=== PATIENT | male | born 1950 | race Caucasian/White ===

== ENCOUNTER 2016-06-28 13:54 | Emergency (ER) | payer MEDICARE ==
[2016-06-28] MEDS ORDERED: DIPH,PERTUS(ACELL)TETVAC-LF 0.5 ML VIAL IM ONE (14:39)
--- NOTE | 2016-06-28 14:46 | ED ---
Fall HPI - General Chief Complaint: Fall Stated Complaint: Fall, 15ft ladder Time Seen by Provider: 06/28/16 14:08 Source: patient, EMS Mode of arrival: EMS - History of Present Illness Initial Comments: This patient is a 65-year-old man who states that he was working on a ladder at his [employer] proximally 15 feet up when the ladder fell over and he fell as well. The patient states that he landed mainly with his left side. Complains of left forearm/wrist pain, some nose and facial pain, left chest wall and left ankle pain. The patient did not have loss of consciousness. He denies significant headache. He has not had change in vision or sensation. The patient states that he did lie on the ground for a period then got up and was able to bear weight. MD Complaint: fall -: hour(s) Fall From: other (On a ladder) When Fall Occurred: 1 hour [employer] Fall Witnessed: yes, by family Place Fall Occurred: other (At [employer]) Loss of Consciousness: none Prolonged Down Time?: no Symptoms Prior to Fall: none Location: face, chest Location - Extremities: Left: Forearm, Ankle Severity: moderate Quality: other Context: other (Latter fell) - Related Data Home Medications Medication Instructions Recorded Confirmed Metoprolol Succinate [Toprol XL] 50 mg PO BID 05/02/14 06/28/16 Glucosamine Sulfate 500 mg PO DAILY 06/28/16 06/28/16 Krill/Om-3/Dha/Epa/Phospho/Ast 1 cap PO DAILY 06/28/16 06/28/16 [[place]-3 Krill Oil 300 mg Sfgl] Multivitamin [Men's Multi-Vitamin] 1 tab PO DAILY 06/28/16 06/28/16 Previous Rx's Medication Instructions Recorded Hydrocodone/Acetaminophen [[place] 1 each PO Q6HR PRN #20 tab 06/28/16 5-325] Allergies Allergy/AdvReac Type Severity Reaction Status Date / Time amoxicillin Allergy Rash/Hives Verified 06/28/16 14:51 naproxen [From Naprosyn] Allergy ELEVATED Verified 06/28/16 14:51 BLOOD PRESSURE clarithromycin [From Biaxin] AdvReac Severe Abdominal Verified 06/28/16 14:51 Pain DETERGENT SENSITIVITY AdvReac Rash/Hives, Uncoded 06/28/16 14:09 ITCHING Review of Systems ROS Statement: Those systems with pertinent positive or pertinent negative responses have been documented in the HPI. ROS Other: All systems not noted in ROS Statement are negative. Constitutional: Denies: weakness Eyes: Denies: eye pain, vision change ENT: Reports: epistaxis, other (Upper lip laceration.) Respiratory: Denies: cough, dyspnea, hemoptysis Cardiovascular: Reports: chest pain. Denies: dyspnea on exertion, syncope Gastrointestinal: Denies: abdominal pain, nausea, vomiting Genitourinary: Denies: urgency, testicular pain Musculoskeletal: Reports: as per HPI, joint swelling, arthralgia. Denies: back pain Skin: Denies: rash Neurological: Denies: headache, weakness, numbness, paresthesias, confusion Past Medical History Past Medical History: Hypertension, Prostate Disorder, Skin Disorder Additional Past Medical History / Comment(s): BPH. SENSITIVE SKIN. History of Any Multi-Drug Resistant Organisms: None Reported Past Surgical History: Tonsillectomy Additional Past Surgical History / Comment(s): VASECTOMY Past Anesthesia/Blood Transfusion Reactions: No Reported Reaction Past Psychological History: No Psychological Hx Reported Smoking Status: Never smoker Past Alcohol Use History: None Reported Past Drug Use History: None Reported General Exam Limitations: no limitations General appearance: alert, in no apparent distress, other (This patient is a middle-aged white man who is alert and in no distress. He is joking with the examiner throughout the exam.) Head exam: Present: atraumatic, normocephalic Eye exam: Present: PERRL, EOMI, other (There is some swelling to the upper lip as well as a laceration. There is nasal swelling and dried blood to the bilateral nares. tenderness to the bridge of the nose). Absent: scleral icterus , conjunctival injection, periorbital swelling, periorbital tenderness Neck exam: Present: normal inspection, full ROM. Absent: tenderness, meningismus Respiratory exam: Present: normal lung sounds bilaterally, chest wall tenderness. Absent: respiratory distress, wheezes, rales, rhonchi, stridor, accessory muscle use, decreased breath sounds, prolonged expiratory Cardiovascular Exam: Present: regular rate, normal rhythm, normal heart sounds. Absent: systolic murmur, diastolic murmur, rubs, gallop GI/Abdominal exam: Present: soft. Absent: distended, tenderness, guarding, rebound, mass Extremities exam: Present: tenderness, normal capillary refill, other (Swelling and tenderness at the lateral aspect of the left ankle. Swelling and tenderness to the left wrist.). Absent: pedal edema Back exam: Present: normal inspection. Absent: CVA tenderness (R), CVA tenderness (L), paraspinal tenderness, vertebral tenderness Neurological exam: Present: alert, oriented X3, CN II-XII intact. Absent: motor sensory deficit Skin exam: Present: warm, dry, normal color Course Vital Signs 06/28/16 06/28/16 13:59 18:48 Temperature 97.4 F L 98.3 F Pulse Rate 71 83 Respiratory 16 18 Rate Blood Pressure 168/84 176/79 O2 Sat by Pulse 97 99 Oximetry Procedures - Laceration Laceration #1 Consent Obtained: verbal consent Time Out Performed: Yes Indication: laceration Site: lip Size (cm): 1 Description: flap Depth: simple, single layer Anesthetic Used: lidocaine 1% Type of Sutures: nylon Size of Sutures: 6-0 Number of Sutures: 1 Technique: simple, interrupted Patient Tolerated Procedure: well, no complications Medical Decision Making - Medical Decision Making This patient a 65-year-old man who had a fall from ladder. The patient does have fractures to the left hand, including the scaphoid and probably a scapholunate dislocation. The patient has previously seen Dr. Goncalves, I did discuss the case with Dr. Lam who has looked of the films and would prefer that he be referred to the dedicated hand surgeon. I then called and spoke with the [facility] physician client account assistant. She contacted Dr. Javier Cleary, and they reviewed the films of the injury on line. They request that the patient be splinted and that he present to the clinic on the following morning. They suspect that they will need to do a surgery that day or the following. I did apply left hand thumb spica splint. Discussed splint care and return parameters. Suture repair was performed see the note and suture care discussed. Disposition Clinical Impression: Fall, Multiple contusions, Nasal fracture, Ankle sprain, Scaphoid fracture, wrist, closed, Dislocation of lunate bone of wrist Disposition: HOME SELF-CARE Condition: Fair Additional Instructions: Follow-up with Dr. Cleary tomorrow. Prescriptions: Hydrocodone/Acetaminophen [[place] 5-325] 1 each PO Q6HR PRN #20 tab PRN Reason: Pain Referrals: Jonathon Basurto DO [Primary Care Provider] - 1-2 days Javier Cleary DO [Doctor of Osteopathic Medicine] - 1-2 days Aubrey Funez MD [STAFF PHYSICIAN] - 1-2 days
--- NOTE | 2016-06-28 15:16 | XR ---
EXAMINATION TYPE: XR ankle complete LT DATE OF EXAM: 06/28/2016 3:10 PM COMPARISON: NONE HISTORY: Pain Three views of the ankle demonstrate the ankle mortise to be intact and symmetric. The joint spaces are preserved. The osseous structures are intact. IMPRESSION: 1. No definite acute fracture or dislocation, if symptoms persist follow-up study in 7 to 10 days wou ld be suggested.
--- NOTE | 2016-06-28 15:24 | CT ---
EXAMINATION TYPE: CT brain wo con DATE OF EXAM: 06/28/2016 3:15 PM COMPARISON: NONE HISTORY: Pt fell from 15ft off ladder. CT DLP: 1735.1 mGycm Automated exposure control for dose reduction was used. FINDINGS: There is no acute intracranial hemorrhage, mass effect, or midline shift identified. Mild generalized degenerative change. Slight deformity of the nasal bone noted with soft tissue densi ty correlate for nasal bone fracture. Soft tissue density seen within both maxillary sinuses likely postinflammatory. IMPRESSION: 1. No acute intracranial hemorrhage, mass effect, or midline shift is seen. 2. Correlate for nasal bone fracture.
--- NOTE | 2016-06-28 15:28 | CT ---
EXAMINATION TYPE: CT facial bones wo con DATE OF EXAM: 06/28/2016 3:15 PM COMPARISON: NONE HISTORY: Pt fell from 15ft off ladder. CT DLP: 1735.1 mGycm Automated exposure control for dose reduction was used. TECHNIQUE: CT scan of the sinuses is performed without contrast, axial images are obtained, coronal r eformatted images are also reviewed. FINDINGS: There is soft tissue within both maxillary sinuses which likely is postinflammatory. There is a nasal septal deviation. Hairline nondisplaced nasal bone fracture questioned. Correlate clinical ly. Intracranial and intraorbital structures have a normal appearance. Retropharyngeal and nasopharyngeal soft tissue structures are symmetric. Visualized portion of mastoi d air cells show no abnormal opacification. The globes are intact bilaterally. IMPRESSION: 1. Findings suspicious for a nasal bone fracture
--- NOTE | 2016-06-28 15:28 | XR ---
EXAMINATION TYPE: XR forearm LT DATE OF EXAM: 06/28/2016 3:15 PM CLINICAL HISTORY: Fall injury with left forearm pain. TECHNIQUE: Two views of the left forearm are obtained. COMPARISON: None. FINDINGS: There is no acute fracture or dislocation seen in the left radius or ulna. The left elbow joint is felt within normal limits. There is age indeterminate transverse fracture through mid aspect of left scaphoid. There is abnormal widening scapholunate joint. There is lunate dissociation which is angulated radially. Joint space loss radiocarpal joint is noted. There is joint space loss and mil d spurring base of first metacarpal. The overlying soft tissue appears within normal limits. IMPRESSION: There is no acute fracture or dislocation seen in the left radius or ulna. Age indetermi nant fracture and scapholunate injury left wrist as detailed above. Clinical correlation and correlat ion with old outside films would be beneficial.
--- NOTE | 2016-06-28 15:42 | XR ---
EXAMINATION TYPE: XR ribs LT w pa chest xray DATE OF EXAM: 06/28/2016 3:15 PM CLINICAL HISTORY: Fall injury today with chest and left-sided rib pain TECHNIQUE: Single frontal view of the chest is obtained. A frontal and oblique images of the left-flor ed ribs are acquired. COMPARISON: Chest x-ray May 27, 2014. FINDINGS: There is suspected new mild central vascular congestion. No large pleural effusion or pneu mothorax seen bilaterally. The cardiac silhouette size is stable and upper limits of normal. The os seous structures are intact. Dedicated images of the left-sided ribs show no acute displaced fracture. Overlying soft tissue is un remarkable. IMPRESSION: 1. Suspect new mild central vascular congestion, consider fluid overload state. 2. No acute displaced left-sided rib fractures are seen.
--- NOTE | 2016-06-28 16:41 | XR ---
EXAMINATION TYPE: XR hand complete LT DATE OF EXAM: 06/28/2016 4:35 PM COMPARISON: NONE HISTORY: Pain and swelling FINDINGS: Marked deformity of the wrist. Suspect a scaphoid fracture. Alignment the capitate and hamate appear to be abnormal suggestive of dislocation. Arthropathy of the first carpal metacarpal joint. IMPRESSION: 1. Fracture of the scaphoid with marked deformity of the wrist. Suspect lunate dislocation.
[2016-06-28] MEDS ORDERED: SODIUM CHLORIDE 0.9% 1,000 ML IV STA (16:45)
[2016-06-28] MEDS ORDERED: SODIUM CHLORIDE 0.9% 500 ML IV STA (16:45)
[2016-06-28] MEDS ORDERED: HYDROcodone/APAP 5-325MG 1 EACH TAB PO STA (18:07)
[2016-06-28 18:53] VITALS: BP 176/79; PULSE 83; RESP 18; TEMP 98.3
== END 2016-06-28 18:48 | disposition home or self-care (01) ==
LOC: EC 13:54
DX: S62.002A Unspecified fracture of navicular [scaphoid] bone of left wrist, initial encounter for closed fracture (principal); S02.2XXA Fracture of nasal bones, initial encounter for closed fracture; S63.095A Other dislocation of left wrist and hand, initial encounter; S01.511A Laceration without foreign body of lip, initial encounter; S93.402A Sprain of unspecified ligament of left ankle, initial encounter; T14.8 Other injury of unspecified body region; I10 Essential (primary) hypertension; Z23 Encounter for immunization; Z79.899 Other long term (current) drug therapy; Z88.8 Allergy status to other drugs, medicaments and biological substances; Z91.09 Other allergy status, other than to drugs and biological substances; W11.XXXA Fall on and from ladder, initial encounter; Y92.22 Religious institution as the place of occurrence of the external cause
CPT/HCPCS: 12011; 29125; 70450; 70486; 90471; 90715; 96360; 99285

== ENCOUNTER → 2016-10-26 | Outpatient (CLI) | payer MEDICARE ==
[2016-10-26 13:16] LABS: Blood Urea Nitrogen 16 mg/dL (9-20); Non-African American GFR(MDRD) >60 (>60 ml/min/1.73 sqM)
--- NOTE | 2016-10-26 13:54 | CT ---
CT CHEST FOR PULMONARY EMBOLISM. EXAMINATION TYPE: CT angio chest DATE OF EXAM: 10/26/2016 INDICATION: Left side chest pain with cough CT DLP: 488 mGycm, Automated exposure control for dose reduction was used. CONTRAST: Patient injected with 70 mL of Omnipaque 350. COMPARISON: 03/18/2014 TECHNIQUE: CT of the chest is performed on a spiral scan at 2 mm thick sections. Study is performed with intravenous contrast timed for evaluation for pulmonary embolism. This will limit additional po rtions of the evaluation. 3-D MIP images reconstructed by the technologist are reviewed on the compu ter in the coronal and sagittal planes. FINDINGS: Pectus excavatum is present. No persistent filling defects are evident to suggest an acute pulmonary embolism. No mediastinal or hilar adenopathy enlarged by CT criteria is evident. The ascending aorta diameter at the level of the main pulmonary artery is 3.4 cm. The main pulmonary artery diameter at the bifur cation is 2.6 cm. Lung windows are clear. Limited CT section through the upper abdomen are unremarkable. IMPRESSIONS: 1. No acute pulmonary embolism.
== END | disposition home or self-care (01) ==
LOC: RADCTMAIN 12:38
PROVIDERS: ATTEND Family Medicine
DX: R06.82 Tachypnea, not elsewhere classified (principal)
CPT/HCPCS: 82565; 84520; 71275; 36415; Q9967

== ENCOUNTER → 2016-12-12 | Outpatient (CLI) | payer MEDICARE ==
--- NOTE | 2016-12-12 11:03 | XR ---
EXAMINATION TYPE: XR chest 2V DATE OF EXAM: 12/12/2016 COMPARISON: CT angiography of chest dated 10/26/2016. HISTORY: Cough TECHNIQUE: Frontal and lateral views of the chest are obtained. FINDINGS: There is no focal air space opacity, pleural effusion, or pneumothorax seen. Haziness of t he right heart border relates to pectus excavatum seen on the lateral image. The cardiac silhouette s ize is within normal limits. The osseous structures are intact. IMPRESSION: No acute cardiopulmonary process.
== END | disposition home or self-care (01) ==
LOC: RADXRMAIN 10:18
PROVIDERS: ATTEND Otolaryngology Facial Plastic Surgery
DX: R05 Cough (principal)
CPT/HCPCS: 71020

== ENCOUNTER 2018-10-23 16:05 | Emergency (ER) | payer MEDICARE ==
[2018-10-23 16:14] VITALS: BP 189/90; PULSE 91; RESP 18; TEMP 97.8
--- NOTE | 2018-10-23 16:57 | ED ---
Wound/Laceration HPI - General Chief Complaint: Wound/Laceration Stated Complaint: fingers caught in saw blade Time Seen by Provider: 10/23/18 16:26 Source: patient Mode of arrival: ambulatory Limitations: no limitations - History of Present Illness Initial Comments: Patient is a 67-year-old male presenting to the emergency department with lacerations on his left 3 fingers. Patient states he got too close to a circular saw and cut his left index, middle, ring fingers. Patient states he went to [facility] first but they sent him to the ER. Patient admits to having a tetanus vaccine approximately 3 years ago. Patient denies any other injuries. Denies being on blood thinners. - Related Data Home Medications Medication Instructions Recorded Confirmed Metoprolol Succinate [Toprol XL] 50 mg PO BID 05/02/14 06/28/16 Glucosamine Sulfate 500 mg PO DAILY 06/28/16 06/28/16 Krill/Om-3/Dha/Epa/Phospho/Ast 1 cap PO DAILY 06/28/16 06/28/16 [[place]-3 Krill Oil 300 mg Sfgl] Multivitamin [Men's Multi-Vitamin] 1 tab PO DAILY 06/28/16 06/28/16 Previous Rx's Medication Instructions Recorded Hydrocodone/Acetaminophen [[place] 1 each PO Q6HR PRN #20 tab 06/28/16 5-325] Cephalexin [Keflex] 500 mg PO Q6HR 7 Days #28 cap 10/23/18 Allergies Allergy/AdvReac Type Severity Reaction Status Date / Time amoxicillin Allergy Rash/Hives Verified 10/23/18 16:14 naproxen [From Naprosyn] Allergy ELEVATED Verified 10/23/18 16:14 BLOOD PRESSURE clarithromycin [From Biaxin] AdvReac Severe Abdominal Verified 10/23/18 16:14 Pain DETERGENT SENSITIVITY AdvReac Rash/Hives, Uncoded 10/23/18 16:14 ITCHING Review of Systems ROS Statement: Those systems with pertinent positive or pertinent negative responses have been documented in the HPI. ROS Other: All systems not noted in ROS Statement are negative. Past Medical History Past Medical History: Hypertension, Prostate Disorder, Skin Disorder Additional Past Medical History / Comment(s): BPH. SENSITIVE SKIN. History of Any Multi-Drug Resistant Organisms: None Reported Past Surgical History: Tonsillectomy Additional Past Surgical History / Comment(s): VASECTOMY Past Anesthesia/Blood Transfusion Reactions: No Reported Reaction Past Psychological History: No Psychological Hx Reported Smoking Status: Never smoker Past Alcohol Use History: None Reported Past Drug Use History: None Reported General Exam - General Exam Comments Initial Comments: GENERAL: Well-appearing, well-nourished and in no acute distress. HEAD: Atraumatic, normocephalic. EYES: Pupils equal round and reactive to light, extraocular movements intact, sclera anicteric, conjunctiva are normal. ENT: TMs normal, nares patent, oropharynx clear without exudates. Moist mucous membranes. NECK: Normal range of motion, supple without lymphadenopathy or JVD. LUNGS: Breath sounds clear to auscultation bilaterally and equal. No wheezes rales or rhonchi. HEART: Regular rate and rhythm without murmurs, rubs or gallops. ABDOMEN: Soft, nontender, normoactive bowel sounds. No guarding, no rebound. No masses appreciated. : Deferred EXTREMITIES: The left ring finger has some of the nail missing with an avulsion of skin along the nailbed missing as well. The left middle finger has skin tears along the dorsal aspect of the finger with an avulsion of skin as well. The index finger has a severe jagged laceration on the tip of the finger with some avulsion of tissue. Bleeding is controlled at this time. NEUROLOGICAL: Cranial nerves II through XII grossly intact. Normal speech, normal gait. PSYCH: Normal mood, normal affect. SKIN: Warm, Dry, normal turgor, no rashes or lesions noted. Limitations: no limitations Course Vital Signs 10/23/18 16:13 Temperature 97.8 F Pulse Rate 91 Respiratory 18 Rate Blood Pressure 189/90 O2 Sat by Pulse 99 Oximetry Procedures - Laceration Laceration #1 Indication: laceration Site: other (Left index finger) Description: avulsion, irregular Depth: simple, single layer Anesthetic Used: lidocaine 1% Anesthesia Technique: local infiltration, nerve block Pre-repair: irrigated extensively Type of Sutures: nylon Size of Sutures: 4-0 Number of Sutures: 5 Technique: simple, interrupted Patient Tolerated Procedure: well Medical Decision Making - Medical Decision Making Patient is a 67-year-old male presents to the ER with lacerations to his left second, third, and fourth fingers. Patient states he is working with a table saw when the board kicked back and knocked his hand into the saw. Patient denies being on blood thinners. Patient admits to having tetanus vaccine 3 years ago. Patient has avulsion of part of his nail on the left ring finger as well as some of the tissue. The left middle finger has abrasions and a la ceration on the dorsal aspect. The left index finger is an open fracture. X- ray reveals a 3 mm transverse fracture of the tuft of the distal phalanx of the index finger. Patient was given a gram of Ancef. Patient's index finger was repaired with 5 sutures. The other wounds were covered with Steri-Strips and nonstick gauze. Patient will be discharged home with a course of Keflex. Patient was counseled on return parameters and signs of infection. Patient will be discharged home. Disposition Clinical Impression: Laceration, Open fracture of phalanx of left index finger Disposition: HOME SELF-CARE Condition: Stable Instructions (If sedation given, give patient instructions): Care For Your Stitches (ED) Additional Instructions: Please return to the Emergency Department if symptoms worsen or any other concerns. Have sutures removed in 12-14 days. Look for signs of infections such as redness, swelling, drainage, fever, chills. Prescriptions: Cephalexin [Keflex] 500 mg PO Q6HR 7 Days #28 cap Is patient prescribed a controlled substance at d/c from ED?: No Referrals: Jonathon Basurto DO [Primary Care Provider] - 1-2 days
--- NOTE | 2018-10-23 17:10 | XR ---
PROCEDURE: XR hand complete LT - 3V DATE AND TIME: 10/23/2018 4:57 PM CLINICAL INDICATION: PHH; Pain TECHNIQUE: Department protocol COMPARISON: 06/28/2016 FINDINGS: There is architectural distortion and soft tissue swelling involving the tip of the index f augusto with 3 mm diastatic transverse fracture of the tuft of the distal phalanx of the index finger. No radiopaque foreign bodies. The second and third digits are unremarkable. No additional acute findings. IMPRESSION: Fracture/laceration second digit.
[2018-10-23] MEDS ORDERED: LIDOCAINE 1% INJ 10MG/ML (20 ML MDV) SQ ONE (17:17)
[2018-10-23] MEDS ORDERED: ceFAZolin 1,000 MG VIAL IM STA (17:18)
== END 2018-10-23 18:30 | disposition home or self-care (01) ==
LOC: EC 16:05
DX: S62.631B Displaced fracture of distal phalanx of left index finger, initial encounter for open fracture (principal); S61.213A Laceration without foreign body of left middle finger without damage to nail, initial encounter; S61.215A Laceration without foreign body of left ring finger without damage to nail, initial encounter; I10 Essential (primary) hypertension; Z88.0 Allergy status to penicillin; Z88.1 Allergy status to other antibiotic agents; Z88.6 Allergy status to analgesic agent; Z91.048 Other nonmedicinal substance allergy status; Z79.899 Other long term (current) drug therapy; W31.2XXA Contact with powered woodworking and forming machines, initial encounter; Y93.89 Activity, other specified
CPT/HCPCS: 73130; 99283; 12002; 96372; J0690; J2001

== ENCOUNTER → 2021-05-11 | Outpatient (CLI) | payer MEDICARE ==
--- NOTE | 2021-05-11 09:32 | CT ---
EXAMINATION TYPE: CT sinus wo con DATE OF EXAM: 05/11/2021 COMPARISON: 06/28/2016 HISTORY: Chronic sinusitis CT DLP: 636.40 mGycm. Automated Exposure Control for Dose Reduction was Utilized. TECHNIQUE: CT scan of the sinuses is performed without contrast, axial images are obtained, coronal r eformatted images are also reviewed. FINDINGS: The paranasal sinuses including the frontal, ethmoid, sphenoid, and maxillary sinuses bila terally are well-aerated without abnormal opacification. The ostiomeatal complex is patent on the le ft and narrowed on the right. Slight nasal septal deviation Visualized portion of mastoid air cells show no abnormal opacification. The globes are intact bilate rally. IMPRESSION: 1. No diagnostic evidence of sinusitis. 2 nasal septal deviation.
== END | disposition home or self-care (01) ==
LOC: RADCTMAIN 09:01
PROVIDERS: ATTEND Otolaryngology
DX: J34.2 Deviated nasal septum (principal)
CPT/HCPCS: 70486

== ENCOUNTER → 2021-10-22 | Outpatient (CLI) | payer MEDICARE | END | disposition home or self-care (01) | LOC: LABWHC1 09:55 | PROVIDERS: ATTEND Urology | DX: R97.20 Elevated prostate specific antigen [PSA] (principal) | CPT/HCPCS: 36415; 84153 ==

== ENCOUNTER → 2022-01-19 | Outpatient (CLI) | payer MEDICARE | END | disposition home or self-care (01) | LOC: LABWHC1 12:12 | PROVIDERS: ATTEND Urology | DX: R97.20 Elevated prostate specific antigen [PSA] (principal) | CPT/HCPCS: 36415; 84153 ==

== ENCOUNTER 2023-08-27 05:09 | Emergency (ER) | payer MEDICARE ==
--- NOTE | 2023-08-27 05:27 | ED ---
General Adult HPI - General Stated complaint: Cardiac arrest Time Seen by Provider: 08/27/23 05:22 - History of Present Illness Initial comments: Dictation was produced using [employer] dictation software. please excuse any grammatical, word or spelling errors. Chief Complaint: 72-year-old male brought in for cardiac arrest History of Present Illness: Patient 72-year-old male brought in by EMS. According to EMS who provides history of present illness call was made for unresponsive male at [phone]. EMS arrived on scene at 4:45 AM. EMS was told by family that no life-saving interventions were to be had however they put him on a monitor and EMS saw V-fib and convince family that perhaps it was worth pursuing defibrillation and performing CPR. ROSC was achieved by EMS. Allegedly he had a pulse and route to the emergency department. By the time pat ient arrived to the emergency department patient did not have a pulse. EMS did not provide past medical history. Unable to obtain ROS secondary to mental status - Related Data Home Medications Medication Instructions Recorded Confirmed Metoprolol Succinate [Toprol XL] 100 mg PO BID 05/02/14 08/25/21 Multivitamin [Men's Multi-Vitamin] 1 tab PO DAILY 06/28/16 08/24/21 Glucos Sul 2Kcl/MSM/Chond/C/Mn 2 each PO DAILY 08/24/21 08/24/21 [Glucosamine Chondroitin Cap] [place]-3 Fatty Acids/Fish Oil [Fish 2 each PO DAILY 08/24/21 08/24/21 Oil 1,000 mg Softgel] Tamsulosin [Flomax] 0.4 mg PO DAILY 08/24/21 08/25/21 Allergies Allergy/AdvReac Type Severity Reaction Status Date / Time amoxicillin Allergy Rash/Hives Verified 08/24/21 11:11 naproxen [From Naprosyn] Allergy ELEVATED Verified 08/24/21 11:11 BLOOD PRESSURE clarithromycin [From Biaxin] AdvReac Severe Abdominal Verified 08/24/21 11:11 Pain DETERGENT SENSITIVITY AdvReac Rash/Hives, Uncoded 08/24/21 11:11 ITCHING Review of Systems ROS Statement: Those systems with pertinent positive or pertinent negative responses have been documented in the HPI. ROS Other: All systems not noted in ROS Statement are negative. Past Medical History Past Medical History: Cancer, Hyperlipidemia, Hypertension, Prostate Disorder, Skin Disorder Additional Past Medical History / Comment(s): Basal cell skin cancer; sensitive skin. BPH. Sinus problems. History of Any Multi-Drug Resistant Organisms: None Reported Past Surgical History: Orthopedic Surgery, Tonsillectomy Additional Past Surgical History / Comment(s): VASECTOMY. Rt shoulder tendon release. Carpectomy Lt wrist. Past Anesthesia/Blood Transfusion Reactions: No Reported Reaction Smoking Status: Never smoker - Past Family History Mother Family Medical History: No Reported History General Exam - General Exam Comments Initial Comments: General: Cyanotic, mottled Head: Normocephalic, atraumatic Eyes: Pupils 4 mm ENT: Airway patent with BVM Chest: Nonlabored breathing Skin: No visual rash, Neuro: No movement Course Vital Signs 08/27/23 05:23 Pulse Rate 0 L Respiratory 0 L Rate O2 Sat by Pulse 0 L Oximetry - Reevaluation(s) Reevaluation #1: 08/27/23 05:24 Patient seen and evaluated immediately in trauma bay #1. Patient was cyanotic upon arrival with no active compressions being performed. Pulse check was performed patient was pulseless. CPR was started immediately upon arrival. Patient was given 2 rounds of epi. Patient was having continuous chest compressions for approximately 15 minutes. Every pulse check showed no pulse and monitoring manager showed no electrical activity. [id number] bedside ultrasound was performed showing cardiac standstill. Time of was announced at 5:20 AM. Reevaluation #2: 08/27/23 05:44 More history was obtained from the at the bedside. She states that patient was at his baseline for the last several days. He had no complaints. He had no recent travel. Patient had no known major comorbidities. However there was some family history of sudden cardiac in patient's father at a young age. At around 5 minutes prior to calling EMS noted that patient had abnormal breathing. She went to check on him because she was already awake and noticed that he was not breathing which prompted patient's to call EMS. Case discussed with Amanda from the medical advisor's office. Patient body will be released. Medical decision making was discussed and explained to family. Questions answered. Medical Decision Making - Medical Decision Making Was pt. sent in by a medical professional or institution (, PA, [employer], urgent care, hospital, or halfway...) When possible be specific @ -No Did you speak to anyone other than the patient for history (EMS, parent, family, police, friend...)? What history was obtained from this source @ -No Did you review nursing and triage notes (agree or disagree)? Why? @ -I reviewed and agree with nursing and triage notes Were old charts reviewed (outside hosp., previous admission, EMS record, old EKG, old radiological studies, urgent care reports/EKG's, halfway records)? Report findings @ -No old charts were reviewed Differential Diagnosis (chest pain, altered mental status, abdominal pain women, abdominal pain men, vaginal bleeding, musculoskeletal, weakness, fever, dyspnea, syncope, headache, dizziness, GI bleed, back pain, seizure, CVA, palpatations, mental health)? @ -Not applicable EKG interpreted by me (3pts min.). @ -None done X-rays interpreted by me (1pt min.). @ -None done CT interpreted by me (1pt min.). @ -None done U/S interpreted by me (1pt. min.). @ -None done What testing was considered but not performed or refused? (CT, X-rays, U/S, labs)? Why? @ -None What meds were considered but not given or refused? Why? @ -None Did you discuss the management of the patient with other professionals (ashlyn sotomayor i.e., Dr., PA, [employer], lab, RT, psych nurse, marriage and family social worker, wide piece goods inspector, teacher, emergency communications officer, medical case worker)? Give summary @ -No Was smoking cessation discussed for >3mins.? @ -No Was critical care preformed (if so, how long)? @ -Yes, 33 minutes Were there social determinants of health that impacted care today? How? (Homelessness, low income, unemployed, alcoholism, drug addiction, transportati on, low edu. Level, literacy, decrease access to med. care, halfway, rehab)? @ -No Was there de-escalation of care discussed even if they declined (Discuss DNR or withdrawal of care, Hospice)? DNR status @ -No What co-morbidities impacted this encounter? (DM, HTN, Smoking, COPD, CAD, Cancer, CVA, ARF, Chemo, Hep., AIDS, mental health diagnosis, sleep apnea, morbid obesity)? @ -None Was patient admitted / discharged? Hospital course, mention meds given and route, prescriptions, significant lab abnormalities, going to OR and other pertinent info. @ -72-year-old male brought to the emergency department for cardiac arrest. See above for ER course. Undiagnosed new problem with uncertain prognosis? @ -No Drug Therapy requiring intensive monitoring for toxicity (Heparin, Nitro, Insulin, Cardizem)? @ -No Were any procedures done? @ -No Diagnosis/symptom? Acute, or Chronic, or Acute on Chronic? Uncomplicated (without systemic symptoms) or Complicated (systemic symptoms)? @ -Cardiac arrest Disposition Clinical Impression: Cardiac arrest Disposition: Condition: Undetermined Referrals: None,Stated [Primary Care Provider] - 1-2 days Time of Disposition: 05:26 Preliminary Cause of : cardiac arrest
[2023-08-27 05:55] VITALS: PULSE 0; RESP 0
== END 2023-08-27 09:57 | disposition expired ==
LOC: EC 05:09
DX: I46.9 Cardiac arrest, cause unspecified (principal); Z88.0 Allergy status to penicillin; Z88.1 Allergy status to other antibiotic agents; Z88.6 Allergy status to analgesic agent; Z91.048 Other nonmedicinal substance allergy status
CPT/HCPCS: 92950; 99291